=== PATIENT | male | born 1980 | race Caucasian/White ===

== ENCOUNTER 2022-08-27 13:32 | Outpatient (CLI) | payer BC, SELFPAY | END 2022-08-27 13:33 | disposition home or self-care (01) | LOC: RT 13:37 | PROVIDERS: PCP Family Medicine; Visit Provider Family Medicine | DX: R06.02 Shortness of breath (principal) | CPT/HCPCS: 94010 ==

== ENCOUNTER → 2022-10-30 09:05 | Outpatient (BNVA) | payer BC, SELFPAY | PROVIDERS: PCP Family Medicine; Visit Provider Family Medicine | DX: M25.50 Pain in unspecified joint (principal); Z79.899 Other long term (current) drug therapy | CPT/HCPCS: 85651; 86038; 86140; 86431 ==

== ENCOUNTER → 2022-12-04 08:10 | Outpatient (BNVA) | payer BC, SELFPAY | PROVIDERS: PCP Family Medicine; Visit Provider Family Medicine | DX: E11.69 Type 2 diabetes mellitus with other specified complication (principal); E66.9 Obesity, unspecified; E78.5 Hyperlipidemia, unspecified; I10 Essential (primary) hypertension | CPT/HCPCS: 80053; 80061; 82043; 83036 ==

== ENCOUNTER → 2023-03-09 08:20 | Outpatient (BNVA) | payer BC, SELFPAY | PROVIDERS: PCP Family Medicine; Visit Provider Family Medicine | DX: E11.69 Type 2 diabetes mellitus with other specified complication (principal); E66.9 Obesity, unspecified | CPT/HCPCS: 80048; 80061; 83036 ==

== ENCOUNTER → 2023-12-13 08:00 | Outpatient (BNVA) | payer BC, SELFPAY | PROVIDERS: PCP Family Medicine; Visit Provider Family Medicine | DX: E11.69 Type 2 diabetes mellitus with other specified complication (principal); E66.9 Obesity, unspecified | CPT/HCPCS: 80053; 80061; 82607; 83036; 83721; 84443 ==

== ENCOUNTER → 2024-03-15 07:57 | Outpatient (BNVA) | payer BC, SELFPAY | PROVIDERS: PCP Family Medicine; Visit Provider Family Medicine | DX: E11.9 Type 2 diabetes mellitus without complications (principal); N50.89 Other specified disorders of the male genital organs | CPT/HCPCS: 80053; 80061; 82040; 82607; 83036; 84270; 84403 ==

== ENCOUNTER 2024-04-06 14:17 | Outpatient (CLI) | payer BC, SELFPAY ==
--- NOTE | 2024-04-06 14:30 | US_ITS ---
WS: [id number] TESTICULAR ULTRASOUND HISTORY: lump in lt testicle, new size difference in testicles COMPARISON: None available. TECHNIQUE: Real-time and color Doppler imaging or utilized to perform a testicular ultrasound. Right testicle: 4.3 cm x 3.2 cm x 2.1 cm. Normal size testicle. There is mild heterogeneity throughout the testicle but no mass. Normal vascula rity. Normal color Doppler is present throughout. Systolic and diastolic velocities are both present. No significant hydrocele. Right epididymis: Normal epididymis with no increased vascularity. Tiny superficial spermatocele negrita ures 0.4 x 0.5 x 0.3 cm. Left testicle: 4.7 cm x 3.1 cm x 2.4 cm. Normal size and echogenicity. No mass or torsion. Normal color Doppler is present throughout. Systolic and diastolic velocities are both present. No significant hydrocele. Left epididymis: Normal epididymis with no increased vascularity. Note: Patient describes the palpable area in the LEFT testicle as having resolved in the interval. US/US scrotum [id number] IMPRESSION: 1. No testicular mass or torsion. 2. Testicles are symmetric in size. 3. No hydrocele.
== END 2024-04-06 14:18 | disposition home or self-care (01) ==
LOC: RAD 14:18
PROVIDERS: PCP Family Medicine; Visit Provider Family Medicine
DX: N50.89 Other specified disorders of the male genital organs (principal)
CPT/HCPCS: 76870

== ENCOUNTER → 2024-04-26 07:51 | Outpatient (BNVA) | payer BC, SELFPAY | PROVIDERS: PCP Family Medicine; Visit Provider Family Medicine | DX: R79.89 Other specified abnormal findings of blood chemistry (principal) | CPT/HCPCS: 82040; 84270; 84403 ==

== ENCOUNTER → 2024-06-05 07:54 | Outpatient (BNVA) | payer BC, SELFPAY | PROVIDERS: PCP Family Medicine; Visit Provider Family Medicine | DX: R79.89 Other specified abnormal findings of blood chemistry (principal) | CPT/HCPCS: 82040; 84270; 84403 ==

== ENCOUNTER → 2024-07-04 08:10 | Outpatient (BNVA) | payer BC, SELFPAY | PROVIDERS: PCP Family Medicine; Visit Provider Family Medicine | DX: R79.89 Other specified abnormal findings of blood chemistry (principal) | CPT/HCPCS: 82040; 84270; 84403 ==

== ENCOUNTER → 2024-09-04 08:17 | Outpatient (BNVA) | payer BC, SELFPAY | PROVIDERS: PCP Family Medicine; Visit Provider Family Medicine | DX: E11.69 Type 2 diabetes mellitus with other specified complication (principal); E66.9 Obesity, unspecified; R79.89 Other specified abnormal findings of blood chemistry | CPT/HCPCS: 82040; 83036; 84270; 84403; 85025 ==

== ENCOUNTER → 2024-09-13 08:18 | Outpatient (BNVA) | payer BC, SELFPAY | PROVIDERS: PCP Family Medicine; Visit Provider Physician Assistant | DX: M79.641 Pain in right hand (principal); M79.642 Pain in left hand; M18.0 Bilateral primary osteoarthritis of first carpometacarpal joints | CPT/HCPCS: 73130 ==

== ENCOUNTER → 2024-12-04 07:47 | Outpatient (BNVA) | payer BC, SELFPAY | PROVIDERS: PCP Family Medicine; Visit Provider Family Medicine | DX: E11.69 Type 2 diabetes mellitus with other specified complication (principal); E66.9 Obesity, unspecified; R79.89 Other specified abnormal findings of blood chemistry; R73.03 Prediabetes | CPT/HCPCS: 82040; 83036; 84270; 84403 ==

== ENCOUNTER → 2025-06-07 10:52 | Outpatient (BNVA) | payer BC, SELFPAY | PROVIDERS: PCP Family Medicine; Visit Provider Family Medicine | DX: E11.69 Type 2 diabetes mellitus with other specified complication (principal); E66.9 Obesity, unspecified; E78.5 Hyperlipidemia, unspecified; I10 Essential (primary) hypertension; R79.89 Other specified abnormal findings of blood chemistry; Z79.899 Other long term (current) drug therapy; Z01.818 Encounter for other preprocedural examination | CPT/HCPCS: 80053; 80061; 80307; 81003; 82040; 83036; 84270; 84403; 85025 ==